=== PATIENT | female | born 1985 | race Caucasian/White ===

== ENCOUNTER 2018-12-12 22:09 | Emergency (ER) | payer BC, OTHER ==
[2018-12-12 23:20] LABS: Urine Blood NEGATIVE (NEG); Urine Glucose NEGATIVE (NEG); Urine Protein NEGATIVE (NEG); Urine Specific Gravity 1.015 (1.005-1.030)
[2018-12-12 23:51] LABS: Urine Amorphous Sediment TRACE /HPF (NONE SEEN); Urine Bacteria <20 /HPF (<20); Urine Culture Reflex Order NOT NEEDED; Urine RBC <5 /HPF (NONE SEEN)
[2018-12-13 00:15] LABS: Absolute Lymphocytes (CBC) 1.3 K/uL (0.7-4.9); Absolute Monocytes 0.6 K/uL (0.1-1.3); Basophils % 0.1 % (0-1.3); Eosinophils % 0.4 % (0-4.4); Hematocrit 31.9 % (36.0-45.0); Lymphocytes % 10.3 % (15.3-44.8); MPV 10.4 fL (7.6-11.3); Monocytes % 4.7 % (3.3-12.3); RBC Red Blood Cell Count 4.92 M/uL (3.86-4.86)
[2018-12-13] MEDS ORDERED: KETOROLAC 30 MG/ML INJ ONE (00:17)
[2018-12-13] MEDS ORDERED: NA CHLORIDE 0.9% 1,000 ML ONE (00:17)
[2018-12-13 00:49] LABS: ALT/SGPT 23 U/L (12-78); AST/SGOT 9 U/L (15-37); Albumin 3.9 g/dL (3.4-5.0); Alkaline Phosphatase 93 U/L (45-117); BUN Blood Urea Nitrogen 13 mg/dL (7-18); Bicarbonate 24 mmol/L (21-32); Bilirubin Direct < 0.1 mg/dL (0-0.2); Bilirubin Total 0.2 mg/dL (0.2-1.0); Glucose Level 107 mg/dL (74-106); Lipase 122 U/L (73-393); Potassium 3.8 mmol/L (3.5-5.1); Protein, Total 7.8 g/dL (6.4-8.2); Sodium Level 139 mmol/L (136-145)
[2018-12-13 00:52] LABS: Blood Morphology Comment NOTED (NOT SEEN); Hypochromasia 1+; Platelet Estimate ADEQ; Urine White Blood Cell Casts OK
--- NOTE | 2018-12-13 07:26 | RAD REPORT ---
EXAM DESCRIPTION: US - Pelvis Complete - 12/13/2018 7:11 am CLINICAL HISTORY: Pelvic pain, abnormal CT study COMPARISON: None. TECHNIQUE: Transabdominal pelvic sonography was performed. FINDINGS: Endometrial stripe is 8 mm with no focal endometrial abnormality. No myometrial mass. Righ t ovary contains a 2.6 centimeter cyst. There are few low-level internal echoes present. Significant hemorrhage or long-term significance doubtful. Doppler evaluation shows normal blood flow in the bila teral ovaries. No significant adnexal finding. No free fluid or blood in the cul-de-sac. Bladder is normal. Uterus is 9.1 x 3.9 x 5.6 cm. IMPRESSION: Approximately 2.6 centimeter right ovarian cyst. Long-term significance is doubtful. No uterine or left ovarian abnormality. Doppler evaluation shows normal blood flow within the ovaries.
--- NOTE | 2018-12-13 08:04 | ER ---
Nurse's Notes [facility] Name: Leatha Yuan Age: 33 yrs Sex: Female : 1985 Arrival Date: 12/12/2018 Time: 22:14 Bed 7 Private MD: Diagnosis: Acute abdominal pain;acute pelvic pain Presentation: 12/12 22:42 Presenting complaint: Patient states: "My lower stomach pain and lightheaded and jd3 dizziness.". Transition of care: patient was not received from another setting of care. Onset of symptoms was December 12, 2018. Risk Assessment: Do you want to hurt yourself or someone else? Patient reports no desire to harm self or others. Initial Sepsis Screen: Does the patient meet any 2 criteria? No. Patient's initial sepsis screen is negative. Does the patient have a suspected source of infection? No. Patient's initial sepsis screen is negative. Care prior to arrival: None. 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 - Social history:: Smoking status: Patient uses tobacco products, smokes one-half pack cigarettes per day. - Ebola Screening: : Patient negative for fever greater than or equal to 101.5 degrees Fahrenheit, and additional compatible Ebola Virus Disease symptoms. Screenin/04 00:07 Abuse screen: Denies threats or abuse. Denies injuries from another. Nutritional aa1 screening: No deficits noted. Tuberculosis screening: No symptoms or risk factors identified. Fall Risk None identified. Assessment: 00:07 General: Appears in no apparent distress. comfortable, Behavior is calm, cooperative, aa1 appropriate for age. Pain: Complains of pain in right lower quadrant and left lower quadrant Pain currently is 0 out of 10 on a pain scale. at worst was 10 out of 10 on a pain scale. Is intermittent. Neuro: Level of Consciousness is awake, alert, obeys commands, Oriented to person, place, time, situation, Moves all extremities. Full function Gait is steady. Respiratory: Airway is patent Respiratory effort is even, unlabored, Respiratory pattern is regular, symmetrical. GI: Abdomen is non-distended, obese, Bowel sounds present X 4 quads. Abd is soft X 4 quads Reports lower abdominal pain, Patient currently denies constipation, diarrhea, nausea, vomiting. : Denies burning with urination, inability to void, vaginal bleeding. EENT: No signs and/or symptoms were reported regarding the EENT system. Derm: Skin is intact, is healthy with good turgor, Skin is pink, warm \\T\\ dry. Musculoskeletal: Circulation, motion, and sensation intact. Capillary refill < 3 seconds. 00:20 Reassessment: Pt states she does not want the Toradol that is ordered for her at this aa1 time. 01:30 Reassessment: Patient appears in no apparent distress at this time. Patient and/or aa1 family updated on plan of care and expected duration. Pain level reassessed. Patient is alert, oriented x 3, equal unlabored respirations, skin warm/dry/pink. Pt still working on finishing PO contrast for CT. 02:47 Reassessment: Patient appears in no apparent distress at this time. Patient and/or aa1 family updated on plan of care and expected duration. Pain level reassessed. Patient is alert, oriented x 3, equal unlabored respirations, skin warm/dry/pink. Notified Anjum in CT that pt has finished PO contrast at this time. 03:42 Reassessment: Patient appears in no apparent distress at this time. Patient and/or aa1 family updated on plan of care and expected duration. Pain level reassessed. Patient is alert, oriented x 3, equal unlabored respirations, skin warm/dry/pink. Awaiting CT scan. Pt has orders for zofran but does not wish to receive any medication at this time. 04:30 Reassessment: Patient appears in no apparent distress at this time. Patient and/or aa1 family updated on plan of care and expected duration. Pain level reassessed. Patient is alert, oriented x 3, equal unlabored respirations, skin warm/dry/pink. Awaiting CT scan. 06:40 Reassessment: Patient appears in no apparent distress at this time. Patient and/or aa1 family updated on plan of care and expected duration. Pain level reassessed. Patient is alert, oriented x 3, equal unlabored respirations, skin warm/dry/pink. ordering u/s at this time. Vital Signs: 12/12 22:44 BP 161 / 93; Pulse 101; Resp 18 S; Temp 97.8(TE); Pulse Ox 100% on R/A; Weight 117.93 jd3 kg (R); Height 5 ft. 7 in. (170.18 cm) (R); Pain 8/10; 12/13 00:07 BP 157 / 101; Pulse 79; Resp 18; Pulse Ox 100% on R/A; Pain 2/10; aa1 01:30 BP 99 / 78; Pulse 77; Resp 18; Pulse Ox 97% on R/A; Pain 2/10; aa1 03:31 BP 118 / 86; Pulse 83; Resp 16; Pulse Ox 100% on R/A; mt 04:48 BP 110 / 74; Pulse 72; Resp 16; Pulse Ox 99% on R/A; mt 06:55 BP 133 / 82; Pulse 72; Resp 16; Pulse Ox 97% on R/A; aa1 12/12 22:44 Body Mass Index 40.72 (117.93 kg, 170.18 cm) jd3 ED Course: 12/12 22:14 Patient arrived in ED. am2 22:43 Triage completed. jd3 22:45 Arm band placed on. jd3 23:40 Leighton Comer PA is PHCP. cp 23:40 Enrique Iniguez MD is Attending Physician. cp 12/13 00:01 Paty Caldwell RN is Primary Nurse. aa1 00:07 Patient has correct armband on for positive identification. Bed in low position. Call aa1 light in reach. Pulse ox on. NIBP on. 00:10 Inserted saline lock: 20 gauge in right antecubital area, using aseptic technique. mt Blood collected. 05:01 CT completed. Pt tolerated procedure poorly. Patient moved to CT via wheelchair. eh Patient moved back from CT. 05:01 Notified ED Physician PATIENT REFUSED IV CONTRAST FOR CT. eh 05:10 Abdomen In Process Unspecified. EDMS 07:05 Report given to Katelin Chau RN. aa1 07:06 Katelin Chau, RN is Primary Nurse. iw 07:11 US Pelvis Complete In Process Unspecified. EDMS 08:01 Herminia An MD is Referral Physician. wa 08:02 Jung Kay MD is Referral Physician. wa 08:16 No provider procedures requiring assistance completed. IV discontinued, intact, iw bleeding controlled, No redness/swelling at site. Pressure dressing applied. Administered Medications: 00:15 Drug: NS 0.9% 1000 ml Route: IV; Rate: 1 bolus; Site: right antecubital; aa1 06:47 Not Given (Patient Refused): TORadol 30 mg IVP once aa1 06:47 Not Given (Patient Refused): Zofran 4 mg IVP once; over 2 minutes aa1 Outcome: 08:03 Discharge ordered by MD. wa 08:16 Discharged to home ambulatory. iw 08:16 Condition: good 08:16 Discharge instructions given to patient, Instructed on discharge instructions, follow up and referral plans. Demonstrated understanding of instructions, follow-up care, medications, Prescriptions given X 2. 08:17 Patient left the ED. iw Signatures: Dispatcher [employer] EDOK Paty Caldwell, RN RN aa1 Henrry Chaney Katelin Chau RN RN iw Leighton Comer PA PA Sophie Mancera amKindra Rodriguez mt, William, MD MD wa Davies, Jonathon, RN RN jd3 Corrections: (The following items were deleted from the chart) 05:10 05:09 In radiology for Abdomen Pelvis W Con+CT.RAD.BRZ. EDMS EDMS
--- NOTE | 2018-12-13 08:04 | EDPHYS ---
Physician Documentation [facility] Name: Leatha Yuan Age: 33 yrs Sex: Female : 1985 Arrival Date: 12/12/2018 Time: 22:14 Bed 7 Private MD: ED Physician Enrique Iniguez HPI: 12/13 00:00 This 33 yrs old Female presents to ER via Ambulatory with complaints of cp Abdominal Pain - low, Near Syncope, Dizziness. 00:00 The patient presents with abdominal pain in the lower abdomen. Onset: The cp symptoms/episode began/occurred today. The symptoms radiate to rectal area. Associated signs and symptoms: Pertinent positives: constipation, dysuria, Pertinent negatives: blood in stools, chest pain, diarrhea, fever, vaginal discharge, vaginal discharge. The symptoms are described as waxing/waning. Modifying factors: the symptoms are aggravated by pressure. Severity of pain: in the emergency department the pain has improved moderately. 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 - Social history:: Smoking status: Patient uses tobacco products, smokes one-half pack cigarettes per day. - Ebola Screening: : Patient negative for fever greater than or equal to 101.5 degrees Fahrenheit, and additional compatible Ebola Virus Disease symptoms. ROS: 12/13 00:05 Constitutional: Negative for body aches, chills, fever, poor PO intake. cp 00:05 Eyes: Negative for injury, pain, redness, and discharge. cp 00:05 ENT: Negative for drainage from ear(s), ear pain, sore throat, difficulty swallowing, difficulty handling secretions. 00:05 Cardiovascular: Negative for chest pain, palpitations. 00:05 Respiratory: Negative for cough, shortness of breath, wheezing. 00:05 Abdomen/GI: Positive for abdominal pain, nausea, constipation, rectal pain, of the suprapubic area, right lower quadrant and left lower quadrant, Negative for vomiting, diarrhea, anorexia, black/tarry stool, rectal bleeding. 00:05 Back: Negative for pain at rest, pain with movement. 00:05 : Positive for burning with urination, Negative for flank pain, vaginal bleeding, vaginal discharge. 00:05 Skin: Negative for cellulitis, rash. 00:05 Neuro: Negative for altered mental status, dizziness, headache, weakness. 00:05 All other systems are negative. Exam: 00:10 Constitutional: The patient appears in no acute distress, alert, awake, non-toxic, well cp developed, well nourished, obese. 00:10 Head/Face: Normocephalic, atraumatic. cp 00:10 Eyes: Periorbital structures: appear normal, Conjunctiva: normal, no exudate, no injection, Sclera: no appreciated abnormality, Lids and lashes: appear normal, bilaterally. 00:10 ENT: External ear(s): are unremarkable, Nose: is normal, Mouth: is normal, Posterior pharynx: is normal, airway is patent, no erythema, no exudate. 00:10 Chest/axilla: Inspection: normal, Palpation: is normal, no crepitus, no tenderness. 00:10 Cardiovascular: Rate: normal, Rhythm: regular. 00:10 Respiratory: the patient does not display signs of respiratory distress, Respirations: normal, no use of accessory muscles, no retractions, no splinting, no tachypnea, labored breathing, is not present, Breath sounds: are clear throughout, no decreased breath sounds, no stridor, no wheezing. 00:10 Abdomen/GI: Inspection: obese Bowel sounds: active, all quadrants, Palpation: soft, in all quadrants, moderate abdominal tenderness, in the suprapubic area, right lower quadrant and left lower quadrant, rebound tenderness, is not appreciated, involuntary guarding, is not appreciated. 00:10 Back: pain, is absent, ROM is normal. 03:16 : Pelvic Exam: The exam is refused by the patient/guardian. The risks and cp consequences are understood by the patient. Vital Signs: 12/12 22:44 BP 161 / 93; Pulse 101; Resp 18 S; Temp 97.8(TE); Pulse Ox 100% on R/A; Weight 117.93 jd3 kg (R); Height 5 ft. 7 in. (170.18 cm) (R); Pain 8/10; 12/13 00:07 BP 157 / 101; Pulse 79; Resp 18; Pulse Ox 100% on R/A; Pain 2/10; aa1 01:30 BP 99 / 78; Pulse 77; Resp 18; Pulse Ox 97% on R/A; Pain 2/10; aa1 03:31 BP 118 / 86; Pulse 83; Resp 16; Pulse Ox 100% on R/A; mt 04:48 BP 110 / 74; Pulse 72; Resp 16; Pulse Ox 99% on R/A; mt 06:55 BP 133 / 82; Pulse 72; Resp 16; Pulse Ox 97% on R/A; aa1 12/12 22:44 Body Mass Index 40.72 (117.93 kg, 170.18 cm) jd3 MDM: 12/12 23:40 Patient medically screened. cp 12/13 00:00 Differential diagnosis: appendicitis, gastritis, non-specific abd pain, Ovarian cp Torsion, Pelvic Inflammatory Disease, Pyelonephritis, Ureterolithiasis, urinary tract infection, colitis, constipation. 06:28 Data reviewed: lab test result(s). Test interpretation: by ED physician or midlevel wa provider: labs noted within nml limits. CT abd/pelvis: 6.3 cm periumbilical hernia . 07:04 Test interpretation: by ED physician or midlevel provider: labs noted with leukocytosis wa of 13.0. anemia 9.6/31.9. 07:05 Test interpretation: by ED physician or midlevel provider: CTabd/pelvis: 6.3 cm left wa periumbilical fat-containing hernia with early/mild incarceration. hernia neck is 9 mm. mild splenomegaly enlarged R ovary likely due to ovarian follicles. consider sonogram. 08:00 Test interpretation: by ED physician or midlevel provider: R ovarian cyst 2.6 cm. nml wa flow. . Response to treatment: the patient's symptoms have markedly improved after treatment. ED course: pt refused pain meds although symptoms improved without meds during ED stay. . 12/12 22:52 Order name: Urine Microscopic Only; Complete Time: 23:52 ar5 12/12 22:54 Order name: Urine Dipstick--Ancillary (enter results); Complete Time: 23:52 ar5 12/13 02:23 Interpretation: Normal except: UESTR 1+. cp 12/12 22:54 Order name: Urine --Ancillary (enter results); Complete Time: 23:52 ar5 12/12 23:56 Order name: Basic Metabolic Panel; Complete Time: 00:50 cp 12/13 02:23 Interpretation: Normal except: CL 108; GLUC 107; GFR 87; CA 8.4. cp 12/12 23:56 Order name: CBC with Diff; Complete Time: 02:23 cp 12/13 00:50 Interpretation: Normal except: WBC 13.0; RBC 4.92; HGB 9.8; HCT 31.9; MCV 64.9; MCH cp 19.9; MCHC 30.7; RDW 18.0; SAM% 84.5; LYM% 10.3; NEUT A 11.0. 12/12 23:56 Order name: Creatinine for Radiology; Complete Time: 00:50 cp 12/12 23:56 Order name: Hepatic Function; Complete Time: 00:50 cp 12/12 23:56 Order name: Lipase; Complete Time: 00:50 cp 12/13 00:52 Order name: CBC Smear Scan; Complete Time: 02:23 EDID 12/13 05:10 Order name: Abdomen EDID 12/13 06:33 Order name: US Pelvis Complete; Complete Time: 07:59 ca 12/12 23:56 Order name: IV Saline Lock; Complete Time: 00:17 cp 12/12 23:56 Order name: Labs collected and sent; Complete Time: 00:17 cp Administered Medications: 00:15 Drug: NS 0.9% 1000 ml Route: IV; Rate: 1 bolus; Site: right antecubital; aa1 06:47 Not Given (Patient Refused): TORadol 30 mg IVP once aa1 06:47 Not Given (Patient Refused): Zofran 4 mg IVP once; over 2 minutes aa1 Disposition: 08:05 Co-signature as Attending Physician, Enrique Iniguez MD I agree with the assessment and ca plan of care. Disposition: 12/13/18 08:03 Discharged to Home. Impression: Acute abdominal pain, acute pelvic pain. - Condition is Stable. - Discharge Instructions: Pelvic Pain, Female, [id number], Abdominal Pain, Adult, [id number], Ventral Hernia. - Prescriptions for Tylenol- Codeine #3 300-30 mg Oral Tablet - take 2 tablet by ORAL route every 6 hours As needed; 6 tablet. Zofran 4 mg Oral Tablet - take 1 tablet by ORAL route every 12 hours As needed; 6 tablet. - Work release form, Medication Reconciliation Form, Thank You Letter, Antibiotic Education, Prescription Opioid Use form. - Follow up: Herminia An MD; When: 1 - 2 days; Reason: Recheck today's complaints. Follow up: Jung Kay MD; When: 1 - 2 days; Reason: Recheck today's complaints, Re-evaluation by your physician, umbilical hernia evaluation. - Problem is new. - Symptoms have improved. - Notes: follow up as recommended to you. return here immediately for rapidly worsening concerns Signatures: Dispatcher [employer] EDID Paty Caldwell RN RN aa1 Katelin Chau RN RN iw Leighton Comer PA PA cp [place], William, MD MD wa Davies, Jonathon, RN RN jd3 Corrections: (The following items were deleted from the chart) 02:23 00:50 Normal except: CL 108; GLUC 107; GFR 87. cp cp 05:10 12/12 23:58 Abdomen Pelvis W Con+CT.RAD.BRZ ordered. EDID EDID 12/13 08:17 08:03 12/13/2018 08:03 Discharged to Home. Impression: Acute abdominal pain; acute iw pelvic pain. Condition is Stable. Forms are Medication Reconciliation Form, Thank You Letter, Antibiotic Education, Prescription Opioid Use. Follow up: Herminia An; When: 1 - 2 days; Reason: Recheck today's complaints. Follow up: Jung Kay; When: 1 - 2 days; Reason: Recheck today's complaints, Re-evaluation by your physician, umbilical hernia evaluation. Problem is new. Symptoms have improved. wa
[2018-12-13 08:34] VITALS: TEMP 97.8
[2018-12-13 08:42] VITALS: BP 133/82; O2SAT 97
--- NOTE | 2018-12-13 11:17 | RAD REPORT ---
EXAM DESCRIPTION: CT - Abdomen Pelvis Wo Contrast - 12/13/2018 5:36 am CLINICAL HISTORY: Lower abdominal and pelvic pain. COMPARISON: None TECHNIQUE: Axial unenhanced [address] imaging of the abdomen and pelvis performed. Reformatted coronal and sagittal images reviewed. A dose reduction technique was utilized with automated exposure control according to patient size. FINDINGS: LOWER THORAX: Clear lung bases. Heart is normal in size. No pericardial fluid. ABDOMEN: LIVER/GALLBLADDER: Normal liver size, contour, and attenuation. Normal gallbladder. SPLEEN/PANCREAS: Spleen is enlarged to greater than 15 cm. Normal spleen attenuation. No varices. No rmal pancreas. KIDNEYS/ADRENAL GLANDS: Normal adrenal glands. Normal right and left kidney. No renal stone. RETROPERITONEAL VESSELS/NODES: Normal aorta and inferior vena cava caliber. No adenopathy. BOWEL: Normal stomach. Small bowel caliber is within normal limits. Normal appendix along the right pelvic sidewall. Normal colon. MESENTERY/PERITONEUM: No adenopathy. No ascites. No free air. There is a fat-containing left periumb ilical hernia, 6.3 x 5.4 x 4.2 cm. The hernia neck is 9 mm. Minimal edema at the hernia neck indicati ve of mild/early incarceration. No bowel involvement. PELVIS: BLADDER: Normal bladder. GENITAL ORGANS: Normal uterus. Right ovary is enlarged, 5.7 cm. Normal left ovary. PERITONEUM: No pelvic free fluid or adenopathy. BONES AND SOFT TISSUES: Normal lumbar lordosis. Mild L5-S1 diffuse disc bulge. Unremarkable bony pel vis and hips. IMPRESSION: 1. 6.3 cm left periumbilical fat-containing hernia with early/mild incarceration. Hernia neck is 9 mm. No bowel involvement. 2. Mild splenomegaly. 3. Enlarged right ovary, likely due to ovarian follicles. If there is pelvic pain, consider sonograph y to evaluate for ovarian torsion.. Electronically signed by: Brenda Lam DO 12/13/2018 5:23 AM CDT Due to temporary technical issues with the PACS/Fluency reporting system, reports are being signed by the in house radiologist as a courtesy to ensure prompt reporting. The interpreting radiologist is f ully responsible for the content of the report.
== END 2018-12-13 08:17 | disposition home or self-care (01) ==
LOC: ER 22:09
DX: R10.2 Pelvic and perineal pain (principal); F17.210 Nicotine dependence, cigarettes, uncomplicated
CPT/HCPCS: 36415; 74176; 76856; 80048; 80076; 81003; 81015; 81025; 83690; 85025; 99284; J7030